=== PATIENT | male | born 1955 | race Caucasian/White ===

== ENCOUNTER → 2018-04-16 | Outpatient (CLI) | payer BC ==
--- NOTE | 2018-04-16 15:53 | RADIOLOGY IMAGING REPORT ---
FACILITY: [facility] PATIENT NAME: Indio Beckham : 1955 MR: [id number] V: [id number] EXAM DATE: ORDERING PHYSICIAN: GA BRENNER TECHNOLOGIST: Location: [facility] Patient: Indio Beckham : 1955 Visit/Account:[id number] Date of Sevice: 04/16/2018 EXAMINATION: Left Lower Extremity Venous Ultrasound HISTORY: Palpable cords, redness. TECHNIQUE: Ultrasound evaluation of the left lower extremity veins was performed with color and spec tral Doppler and compression views. COMPARISON: None. FINDINGS: The left common femoral, femoral, proximal deep femoral, popliteal, and segmentally visualized deep c rian veins are patent and compressible, without evidence of intraluminal thrombus. The upper greater s aphenous vein is patent and compressible. There is occlusive thrombus present within superficial venous varicosities along the medial aspect of the lower leg. No visualized extension into the deep venous system. IMPRESSION: 1. Superficial thrombophlebitis in the lower left leg. There is occlusive thrombus present within sup erficial venous varicosities along the lower leg. 2. No evidence of DVT in the left leg. Findings were discussed with GA BRENNER at 04/16/2018 3:45 PM. Report Dictated By: Albert Kuo MD at 04/16/2018 3:35 PM Report E-Signed By: Albert Kuo MD at 04/16/2018 3:47 PM WSN:[id number]
== END ==
LOC: US 14:44
PROVIDERS: ATTEND Physician Assistant
DX: I80.02 Phlebitis and thrombophlebitis of superficial vessels of left lower extremity (principal)